=== PATIENT | male | born 1945 | race Caucasian/White ===

== ENCOUNTER → 2017-10-23 | Outpatient (CLI) | payer MEDICARE, OTHER ==
[~2017-10-23] MED LIST: CLOB59LO2 TP; IBUP200C5 PO; LISI-167 PO; M-171CAP PO; METF500T4 PO; MULT1TAB60 PO; NAPR220C2 PO; SALI1KIT9 TP; SECU150S INJ; [UNRECOGNIZED DRUG - OTHER] PO; [UNRECOGNIZED DRUG - OTHER] TP
[2017-10-23 12:23] LABS: BLOOD UREA NITROGEN 11 mg/dL (7-18)
[2017-10-23 12:27] LABS: ASPARTATE AMINO TRANSFERASE 19 U/L (15-37)
[2017-10-23 13:01] LABS: HEMATOCRIT 51.2 % (39.2-51.8); HEMOGLOBIN 17.7 g/dL (13.7-18.0); WHITE BLOOD COUNT 12.3 x10^3/uL (3.4-10)
== END | disposition home or self-care (01) ==
LOC: STAR 11:08
PROVIDERS: ATTEND Surgery
DX: Z01.818 Encounter for other preprocedural examination (principal); R94.31 Abnormal electrocardiogram [ECG] [EKG]; I71.4 Abdominal aortic aneurysm, without rupture; I10 Essential (primary) hypertension; E11.9 Type 2 diabetes mellitus without complications; M06.9 Rheumatoid arthritis, unspecified; F17.210 Nicotine dependence, cigarettes, uncomplicated
CPT/HCPCS: 36415; 80053; 85025; 93005

== ENCOUNTER 2017-10-27 05:48 | Inpatient (IN) | payer MEDICARE, OTHER ==
[2017-10-23 06:49] VITALS: BP 150/73
[~2017-10-27] VITALS: Ht 180.3 cm; Wt 101.7 kg
[2017-10-27] MEDS ORDERED: LACTATED RINGERS 1,000 ML IV SCH (06:31)
[2017-10-27] MEDS ORDERED: BUPIVACAINE/PF 0.5% ONE (06:50)
[2017-10-27] MEDS ORDERED: HEPARIN 1,000 UNITS/ML, 10ML ONE (06:50)
[2017-10-27] MEDS ORDERED: PROTAMINE SULFATE 10 MG/ML, 5ML ONE (06:50)
[2017-10-27] MEDS ORDERED: EPINEPHRINE 1 MG/ML, 1ML ONE (06:50)
[2017-10-27] MEDS ORDERED: THROMBIN 5,000 UNIT VIAL TP ONE (06:50)
[2017-10-27] MEDS ORDERED: LIDOCAINE 1%, 2ML SQ PRN (07:00)
[2017-10-27] MEDS ORDERED: MIDAZOLAM 1 MG/ML, 2ML ONE (07:27)
[2017-10-27] MEDS ORDERED: FENTANYL PF 250 MCG/5ML ONE (07:27)
[2017-10-27] MEDS ORDERED: ONDANSETRON 2MG/ML, 2ML ONE (07:44)
[2017-10-27] MEDS ORDERED: CEFAZOLIN 1,000 MG ONE (07:44)
[2017-10-27] MEDS ORDERED: PHENYLEPHRINE 10 MG/ML ONE (07:44)
[2017-10-27] MEDS ORDERED: SUCCINYLCHOLINE 20 MG/ML, 10ML ONE (07:44)
[2017-10-27] MEDS ORDERED: PROPOFOL 10 MG/ML, 20ML ONE (07:44)
[2017-10-27] MEDS ORDERED: ROCURONIUM 10 MG/ML,10ML ONE (07:44)
[2017-10-27] MEDS ORDERED: DEXAMETHASONE 4 MG/ML, 1ML ONE (07:44)
[2017-10-27] MEDS ORDERED: ONDANSETRON 2MG/ML, 2ML IVPush PRN (08:30)
[2017-10-27] MEDS ORDERED: ACETAMINOPHEN 325 MG TABLET PO PRN ×2 (08:30→12:30)
[2017-10-27] MEDS ORDERED: OXYcodone 5 MG/5 ML ORAL.SOL UDC PO PRN (08:30)
[2017-10-27] MEDS ORDERED: HYDROmorphone 1 MG/ML, 1ML IV PRN (08:30)
[2017-10-27] MEDS ORDERED: LABETALOL 5MG/ML, 20ML IV PRN (08:30)
[2017-10-27] MEDS ORDERED: PROMETHAZINE 25 MG/ML, 1ML IV PRN (08:30)
[2017-10-27] MEDS ORDERED: MEPERIDINE/PF 25MG/0.5ML IVPush PRN (08:30)
[2017-10-27] MEDS ORDERED: hydrALAzine 20 MG/ML, 1ML IV PRN (08:30)
[2017-10-27] MEDS ORDERED: FENTANYL PF 100 MCG/2ML IV PRN (08:30)
[2017-10-27] MEDS ORDERED: MIDAZOLAM 1 MG/ML, 2ML IV PRN (08:30)
[2017-10-27] MEDS ORDERED: ALBUTEROL SULFATE 2.5 MG/3 ML NPPB PRN (08:30)
[2017-10-27] MEDS ORDERED: ACETAMINOPHEN 650 MG/20.3 ML UDC ONE (10:22)
[2017-10-27] MEDS ORDERED: FENTANYL PF 100 MCG/2ML ONE (10:22)
[2017-10-27] MEDS ORDERED: OXYcodone 5 MG/5 ML ORAL.SOL UDC ONE (10:23)
[2017-10-27] MEDS: POTASSIUM CHLORIDE 20 MEQ in D5%-0.45% NACL 1,000 ML IV SCH ×2 (12:30→19:26)
[2017-10-27] MEDS ORDERED: ONDANSETRON 2MG/ML, 2ML IV PRN (12:30)
[2017-10-27 13:44] VITALS: BP 145/69
[2017-10-27] MEDS: HEPARIN 5,000 UNITS/ML, 1ML SQ SCH (17:46)
[2017-10-27] MEDS: INSULIN REGULAR, HUMAN 100 UNIT/ML 3ML VIAL LOW DOSE SS SQ-INSULIN SCH ×2 (18:08→20:34)
[2017-10-27 18:34] VITALS: BP 110/62
[2017-10-27] MEDS: SODIUM CHLORIDE FLUSH 10ML SYR IVF SCH (20:34)
[2017-10-28 00:39] VITALS: BP 116/64
[2017-10-28] MEDS: HEPARIN 5,000 UNITS/ML, 1ML SQ SCH ×2 (01:17→09:00)
[2017-10-28] MEDS: POTASSIUM CHLORIDE 20 MEQ in D5%-0.45% NACL 1,000 ML IV SCH (03:33)
[2017-10-28 05:27] VITALS: BP 103/66
[2017-10-28 07:11] VITALS: BP 130/69
[2017-10-28] MEDS ORDERED: LISINOPRIL 10 MG TABLET PO SCH (09:00)
[2017-10-28] MEDS: SODIUM CHLORIDE FLUSH 10ML SYR IVF SCH (09:00)
[2017-10-28] MEDS: INSULIN REGULAR, HUMAN 100 UNIT/ML 3ML VIAL LOW DOSE SS SQ-INSULIN SCH (09:11)
[2017-10-28] MEDS ORDERED: PNEUMOCOCCAL 23 VACCINE IM-VACC ONE (09:30)
== END 2017-10-28 10:04 | disposition home or self-care (01) | DRG 268 ==
LOC: ORIP 05:48 → 4NOR 11:16
PROVIDERS: ADMIT Surgery; ATTEND Surgery
PROC: 04V03DZ Restriction of Abdominal Aorta with Intraluminal Device, Percutaneous Approach (ICD-10-PCS; principal; 2017-10-28)
PROC: 04VC3DZ Restriction of Right Common Iliac Artery with Intraluminal Device, Percutaneous Approach (ICD-10-PCS; 2017-10-28)
PROC: 04VD3DZ Restriction of Left Common Iliac Artery with Intraluminal Device, Percutaneous Approach (ICD-10-PCS; 2017-10-28)
PROC: B41D1ZZ Fluoroscopy of Aorta and Bilateral Lower Extremity Arteries using Low Osmolar Contrast (ICD-10-PCS; 2017-10-28)
DX: I71.4 Abdominal aortic aneurysm, without rupture (principal); J96.20 Acute and chronic respiratory failure, unspecified whether with hypoxia or hypercapnia; E11.9 Type 2 diabetes mellitus without complications; M19.90 Unspecified osteoarthritis, unspecified site; Z98.42 Cataract extraction status, left eye; Z98.41 Cataract extraction status, right eye; Z82.49 Family history of ischemic heart disease and other diseases of the circulatory system; Z28.21 Immunization not carried out because of patient refusal
CPT/HCPCS: 34802; 34812; 34825; 36200; 36415; 75952; 75953; 82962; 86850; 86900; C1725; J0171; J0690; J1100; J1644; J1815; J2250; J2405; J2704; J2720; J3010; J3490; C1751; C1768; C1769; C1894; C2628; J0330; J2370; J7120

== ENCOUNTER → 2018-06-14 | Outpatient (CLI) | payer MEDICARE, OTHER ==
[~2018-06-14] MED LIST changes: +IBUP-1623 PO; -IBUP200C5 PO; -METF500T4 PO; +METF500T5 PO
== END | disposition home or self-care (01) ==
LOC: CVU 11:49
PROVIDERS: ATTEND Nurse Practitioner Family
DX: I70.203 Unspecified atherosclerosis of native arteries of extremities, bilateral legs (principal); I71.4 Abdominal aortic aneurysm, without rupture; I10 Essential (primary) hypertension; E11.9 Type 2 diabetes mellitus without complications; F17.210 Nicotine dependence, cigarettes, uncomplicated
CPT/HCPCS: 93922; 93925

== ENCOUNTER → 2018-12-17 | Outpatient (CLI) | payer MEDICARE, OTHER ==
[~2018-12-17] MED LIST changes: +METF500T17 PO; -METF500T5 PO
== END | disposition home or self-care (01) ==
LOC: CFH 13:23
PROVIDERS: ATTEND Student in an Organized Health Care Education/Training Program
DX: M51.36 Other intervertebral disc degeneration, lumbar region (principal); M48.061 Spinal stenosis, lumbar region without neurogenic claudication; M47.816 Spondylosis without myelopathy or radiculopathy, lumbar region; M41.86 Other forms of scoliosis, lumbar region; M25.78 Osteophyte, vertebrae
CPT/HCPCS: 72148

== ENCOUNTER → 2019-02-02 | Outpatient (CLI) | payer MEDICARE, OTHER | END | disposition home or self-care (01) | LOC: CFH 10:07 | PROVIDERS: ATTEND Neurological Surgery | DX: M47.816 Spondylosis without myelopathy or radiculopathy, lumbar region (principal); M41.86 Other forms of scoliosis, lumbar region; M48.061 Spinal stenosis, lumbar region without neurogenic claudication | CPT/HCPCS: 72100 ==

== ENCOUNTER → 2019-02-22 | Outpatient (CLI) | payer MEDICARE, OTHER | END | disposition home or self-care (01) | LOC: CFH 07:00 | PROVIDERS: ATTEND Internal Medicine | DX: I71.4 Abdominal aortic aneurysm, without rupture (principal) | CPT/HCPCS: 93978 ==

== ENCOUNTER 2019-03-14 06:39 | Outpatient (CLI) | payer MEDICARE, OTHER ==
[2019-03-16] MEDS ORDERED: TIZA4TAB PO (10:49)
[2019-03-16] MEDS ORDERED: GABA300C10 PO (10:49)
[2019-03-16] MEDS ORDERED: LISI1TAB5 PO (10:49)
[2019-03-16] MEDS ORDERED: EMPA1TAB21 PO (10:49)
[2019-03-16] MEDS ORDERED: SECU150S2 INJ (10:49)
[2019-03-16] MEDS ORDERED: ROSU5TAB PO (10:49)
[2019-03-16] MEDS ORDERED: ASPI-496 PO (10:49)
== END 2019-03-14 23:59 | disposition home or self-care (01) ==
LOC: CFH 06:39
PROVIDERS: ATTEND Internal Medicine Cardiovascular Disease
DX: I51.7 Cardiomegaly (principal); I70.0 Atherosclerosis of aorta; E78.5 Hyperlipidemia, unspecified; I10 Essential (primary) hypertension; E11.9 Type 2 diabetes mellitus without complications; Z87.891 Personal history of nicotine dependence
CPT/HCPCS: 93306

== ENCOUNTER → 2019-03-16 | Outpatient (CLI) | payer MEDICARE, OTHER ==
[~2019-03-16] MED LIST changes: +ASPI-496 PO; +EMPA1TAB21 PO; +GABA300C10 PO; +LISI1TAB5 PO; +ROSU5TAB PO; +SECU150S2 INJ; +TIZA4TAB PO
[2019-03-16 11:17] LABS: BASOPHILS # (AUTO) 0.05 x10^3/uL (0-0.1); BASOPHILS % (AUTO) 1 % (0-1); EOSINOPHILS # (AUTO) 0.16 x10^3/uL (0-0.4); EOSINOPHILS % (AUTO) 2 % (1-7); LYMPHOCYTES # (AUTO) 2.73 x10^3/uL (1-3.4); LYMPHOCYTES % (AUTO) 30 % (22-44); MD NO; MEAN CORPUSCULAR HEMOGLOBIN 31.3 pg (27.5-34.5); MEAN CORPUSCULAR HGB CONC 32.7 g/dL (33.2-36.2); MEAN CORPUSCULAR VOLUME 95.7 fL (81-97); MEAN PLATELET VOLUME 9.1 fL (7.4-10.4); MONOCYTES # (AUTO) 0.74 x10^3/uL (0.2-0.8); MONOCYTES % (AUTO) 8 % (2-9); NEUTROPHILS # (AUTO) 5.58 x10^3/uL (1.8-6.8); NEUTROPHILS % (AUTO) 60 % (42-75); PLATELET COUNT 227 x10^3/uL (130-400); RED BLOOD COUNT 5.49 x10^6/uL (4.38-5.82); RED CELL DISTRIBUTION WIDTH 13.7 % (9.4-14.8)
[2019-03-16 11:17] LABS: MICROSCOPIC NOT IND
[2019-03-16 11:22] LABS: CULTURE INDICATED? NO
[2019-03-16 11:23] LABS: INTERNATIONAL NORMALIZED RATIO 1.04 (0.93-1.1); PROTHROMBIN TIME 10.9 Seconds (9.6-11.5)
[2019-03-16 11:24] LABS: ALANINE AMINOTRANSFERASE 22 U/L (12-78); ALBUMIN 3.9 g/dL (3.4-5.0); ANION GAP 3 mmol/L (5-15); CALCIUM 9.5 mg/dL (8.5-10.1); CHLORIDE 107 mmol/L (98-107)
[2019-03-16 11:27] LABS: ALKALINE PHOSPHATASE 75 U/L (45-117); BILIRUBIN,TOTAL 0.4 mg/dL (0.2-1.0); CREATININE 1.05 mg/dL (0.7-1.3); TOTAL PROTEIN 7.2 g/dL (6.4-8.2)
== END | disposition home or self-care (01) ==
LOC: STAR 09:51
PROVIDERS: ATTEND Neurological Surgery
DX: Z01.818 Encounter for other preprocedural examination (principal); M48.061 Spinal stenosis, lumbar region without neurogenic claudication; E11.9 Type 2 diabetes mellitus without complications; Z72.0 Tobacco use; Z79.01 Long term (current) use of anticoagulants
CPT/HCPCS: 36415; 71046; 80053; 81003; 85025; 85610; 85730; 93005

== ENCOUNTER → 2019-03-16 | Outpatient (CLI) | payer MEDICARE, OTHER ==
[~2019-03-16] MED LIST changes: +REGADENOSON 0.4 MG/5 ML SYRINGE ONE
== END | disposition home or self-care (01) ==
LOC: CFH 12:09
PROVIDERS: ATTEND Internal Medicine Cardiovascular Disease
DX: Z01.810 Encounter for preprocedural cardiovascular examination (principal); I45.10 Unspecified right bundle-branch block; I11.9 Hypertensive heart disease without heart failure; R06.02 Shortness of breath
CPT/HCPCS: 78452; 93017; A9502; J2785